=== PATIENT | female | born 1980 ===

== ENCOUNTER → 2022-07-12 13:46 | Outpatient (CLI) | payer BC, SELFPAY ==
--- NOTE | ~2022-07-12 | CT_ITS ---
EXAMINATION: CT abdomen pelvis w con DATE: 07/12/2022 14:18 INDICATION: Mediastinal mass, Hepatosplenomegaly TECHNIQUE: Computed tomography (CT) of the abdomen and pelvis was performed with 100 mL Omnipaque-350 intravenous contrast. Automated exposure control and iterative reconstruction technique were employe d. The dose-length product was 1119.40 mGy-cm. COMPARISON: None. FINDINGS: Lower thorax: Calcified right lower lobe hamartoma. Mild bilateral dependent atelectasis. Liver: Liver measures 21.6 cm. Biliary/Gallbladder: Gallbladder is normal. No bile duct dilation. Pancreas: No mass or duct dilation. Spleen: Normal. Adrenals:No mass. Kidneys: No mass, stone, or hydronephrosis. GI tract: Distal esophageal and mild antral wall edema. No small or large bowel dilation. Normal appe ndix. Mild diverticulosis without diverticulitis. Mesentery/Peritoneum: No ascites, mass, or free air. Retroperitoneum: No mass. Pelvis: IUD, in good position. Pelvic organs are within normal limits. Soft Tissues: Soft tissues and body wall unremarkable. Bones: No acute osseous finding. Left sacral bone island. IMPRESSION: Hepatomegaly. Otherwise normal CT abdomen and pelvis findings. Reviewed, dictated and finalized at location K. [employer]
[2022-07-12 14:08] LABS: Estimated Glomerular Filt Rate 60
== END ==
PROVIDERS: PCP Family Medicine; Visit Provider Family Medicine
DX: J98.59 Other diseases of mediastinum, not elsewhere classified (principal); E83.42 Hypomagnesemia; R07.9 Chest pain, unspecified; K76.0 Fatty (change of) liver, not elsewhere classified; R16.2 Hepatomegaly with splenomegaly, not elsewhere classified; R20.2 Paresthesia of skin
CPT/HCPCS: 74177; Q9967